=== PATIENT | female | born 1985 | race Caucasian/White ===

== ENCOUNTER 2020-03-25 10:50 | Emergency (ER) | payer MEDICAID ==
--- NOTE | 2020-03-25 10:57 | ER Document Report ---
ED Medical Screen (RME) - General Chief Complaint: Diarrhea Stated Complaint: DIARRHEA Time Seen by Provider: 03/25/20 10:55 Primary Care Provider: TAYO LOPEZ [Primary Care Provider] - Follow up as needed Mode of Arrival: Ambulatory Information source: Patient Notes: 35-year-old female with history of asthma schizophrenia bipolar ADHD and palpitations presents to the emergency department with complaints of diarrhea at least 6 times a day for the past 2 weeks. She reports that started off with sinus pain some sore throat. She now reports dizziness, chills and the diarrhea. Has not taken anything for diarrhea. She lives with a 75-year-old roommate and does not think they are sick. No new medications. Has not been on any kind of antibiotics recently. Reports she is eating and drinking as usual. She reports she is dizzy just sitting there. I have greeted and performed a rapid initial assessment of this patient. A comprehensive ED assessment and evaluation of the patient, analysis of test results and completion of the medical decision making process will be conducted by additional ED providers. - Related Data Allergies/Adverse Reactions: morphine Allergy (Verified 03/25/20 11:00) Hives sulfamethoxazole [From Bactrim] Allergy (Verified 03/25/20 11:00) Hives trimethoprim [From Bactrim] Allergy (Verified 03/25/20 11:00) Hives Past Medical History Pulmonary Medical History: Reports: Hx Bronchitis Psychiatric Medical History: Reports: Hx Bipolar Disorder, Hx Depression Past Surgical History: Reports: Hx Section - x2, Hx Cholecystectomy, Hx Tonsillectomy, Hx Tubal Ligation - Immunizations Hx Diphtheria, Pertussis, Tetanus Vaccination: No Physical Exam - Vital signs Vitals: Temp Pulse Resp BP Pulse Ox 97.9 F 78 16 118/69 99 03/25/20 10:57 03/25/20 10:57 03/25/20 10:57 03/25/20 10:57 03/25/20 10:57 Course - Vital Signs Vital signs: Temp Pulse Resp BP Pulse Ox 97.9 F 78 16 118/69 99 03/25/20 10:57 03/25/20 10:57 03/25/20 10:57 03/25/20 10:57 03/25/20 10:57 Doctor's Discharge - Discharge Referrals: TAYO LOPEZ [Primary Care Provider] - Follow up as needed
[2020-03-25 11:35] LABS: ABSOLUTE BASOPHILS # (AUTO) 0.1 10^3/uL (0.0-0.2); ABSOLUTE EOSINOPHILS # (AUTO) 0.2 10^3/uL (0.0-0.6); ABSOLUTE LYMPHOCYTES (AUTO) 2.5 10^3/uL (0.5-4.7); ABSOLUTE MONOCYTES (AUTO) 0.6 10^3/uL (0.1-1.4); BASOPHILS % (AUTO) 0.9 % (0-2); EOSINOPHILS % (AUTO) 2.7 % (0-6); HEMATOCRIT 45.9 % (36.0-47.0); HEMOGLOBIN 16.3 g/dL (12.0-15.5); LYMPHOCYTES % (AUTO) 39.5 % (13-45); MEAN CORPUSCULAR HEMOGLOBIN 32.5 pg (27.0-33.4); MEAN CORPUSCULAR HGB CONC 35.5 g/dL (32.0-36.0); MEAN CORPUSCULAR VOLUME 92 fl (80-97); MONOCYTES % (AUTO) 8.9 % (3-13); PLATELET COUNT 248 10^3/uL (150-450); RED BLOOD COUNT 5.01 10^6/uL (3.72-5.28); TOTAL CELLS COUNTED % (AUTO) 100 %; WHITE BLOOD COUNT 6.2 10^3/uL (4.0-10.5)
[2020-03-25 11:39] LABS: APPEARANCE,URINE SLIGHTLY-CLOUDY; BILIRUBIN,URINE NEGATIVE (NEGATIVE); COLOR,URINE YELLOW; GLUCOSE, URINE NEGATIVE (NEGATIVE); KETONES,URINE NEGATIVE (NEGATIVE); LEUKOCYTE ESTERASE,URINE NEGATIVE (NEGATIVE); NITRITE,URINE NEGATIVE (NEGATIVE); PROTEIN,URINE NEGATIVE (NEGATIVE); URINE SPECIFIC GRAVITY 1.011; UROBILINOGEN,URINE NEGATIVE mg/dL (<2.0)
[2020-03-25] MEDS ORDERED: KETOROLAC TROMETHAMINE INJ/PF 30 MG/1 ML SDV IV ONE (11:40)
--- NOTE | 2020-03-25 11:44 | ER Document Report ---
ED General - General Chief Complaint: Diarrhea Stated Complaint: DIARRHEA Time Seen by Provider: 03/25/20 10:55 Primary Care Provider: TAYO LOPEZ [NO LOCAL MD] - Follow up as needed Mode of Arrival: Ambulatory - [facility] Notes: Chief complaint: Diarrhea HPI: 35-year-old female with multiple watery stools for over a week. Feels like she is having chills and fever. Denies any blood per rectum. No vomiting. No known exposure to ill individuals. No recent travel. No recent antibiotic therapy. Patient also reports that she has had a history of chronic low back pain secondary to an old injury from several years ago. She says her back is hurting worse than before. No relief with Tylenol. - Related Data Allergies/Adverse Reactions: morphine Allergy (Verified 03/25/20 11:00) Hives sulfamethoxazole [From Bactrim] Allergy (Verified 03/25/20 11:00) Hives trimethoprim [From Bactrim] Allergy (Verified 03/25/20 11:00) Hives Home Medications: paxil, invega, abilify, clonidine, seroquel Past Medical History - General Information source: Patient - Social History Smoking Status: Current Every Day Smoker Chew tobacco use (# tins/day): No Frequency of alcohol use: None Drug Abuse: Marijuana Family History: Reviewed & Not Pertinent Patient has suicidal ideation: No Patient has homicidal ideation: No Pulmonary Medical History: Reports: Hx Bronchitis Psychiatric Medical History: Reports: Hx Bipolar Disorder, Hx Depression Past Surgical History: Reports: Hx Section - x2, Hx Cholecystectomy, Hx Tonsillectomy, Hx Tubal Ligation - Immunizations Hx Diphtheria, Pertussis, Tetanus Vaccination: No Review of Systems - Review of Systems Notes: Constitutional: Subjective fever. HENT: Negative for sore throat. Eyes: Negative for visual changes. Cardiovascular: Negative for chest pain. Respiratory: Negative for shortness of breath. Gastrointestinal: As per HPI. Genitourinary: Negative for dysuria. Musculoskeletal: As per HPI. Skin: Negative for rash. Neurological: Negative for headaches, weakness or numbness. 10 point ROS negative except as marked above and in HPI. Physical Exam - Vital signs Vitals: Temp Pulse Resp BP Pulse Ox 97.9 F 78 16 118/69 99 03/25/20 10:57 03/25/20 10:57 03/25/20 10:57 03/25/20 10:57 03/25/20 10:57 - Notes Notes: GENERAL: Middle-age female who appears dehydrated. SKIN: Turgor slightly diminished. No rashes. HEAD: Normocephalic atraumatic. EYES: Eyes appear mildly sunken. PERRLA. EOMI. Conjunctivae and sclerae clear. EARS: CANALS AND TMS CLEAR. NOSE: CLEAR. MOUTH: Tacky oral mucosa. Good dentition. No stridor or edema. No drooling. NECK: Supple. No masses or thyromegaly. No adenopathy. Carotids 2+ without bruits. No JVD. BACK: Paraspinous tenderness lumbar area with palpable muscle spasm. Straight leg raising test negative. CHEST: Respirations unlabored. Breath sounds clear and symmetrical. HEART: Regular rhythm. No murmur gallop or rub. ABDOMEN: Soft nontender without masses, organomegaly or rebound. Bowel sounds hyperactive. No bruits. GENITALIA: Deferred. EXTREMITIES: No edema. No calf tenderness. Cap refill less than 1.5 seconds. Dorsalis pedis and posterior tibial pulses 3+ and symmetrical. NEUROLOGICAL: GCS 15. Alert and oriented x3. Normal gait. Fluent speech. Cranial nerves II through XII intact. Sensorimotor and cerebellar normal. Normal tone. PSYCHIATRIC: Appropriate affect. Course - Re-evaluation Re-evalutation: 03/25/20 14:11 Patient appeared clinically dehydrated and she was polycythemic on her CBC possibly also consistent with dehydration. She received 2 L normal saline IV here. She is tolerating p.o. fluids without difficulty. She denies any further stools here. Based on the history I would have to have concerned about infectious diarrhea. I think we can reasonably treat her as an outpatient with some oral antibiotics and have her follow-up with primary care physician. - Vital Signs Vital signs: Temp Pulse Resp BP Pulse Ox 97.9 F 78 16 118/69 99 03/25/20 11:01 03/25/20 10:57 03/25/20 10:57 03/25/20 10:57 03/25/20 10:57 - Laboratory Result Diagrams: 03/25/20 11:18 03/25/20 11:18 Laboratory results interpreted by me: 03/25/20 03/25/20 11:18 11:18 Hgb 16.3 H Sodium 134.8 L Discharge - Discharge Clinical Impression: Dehydration Diarrhea Qualifiers: Diarrhea type: unspecified type Qualified Code(s): R19.7 - Diarrhea, unspec ified Chronic low back pain Qualifiers: Back pain laterality: midline Sciatica presence: without sciatica Qualified Code(s): M54.5 - Low back pain; G89.29 - Other chronic pain Condition: Stable Disposition: HOME, SELF-CARE Additional Instructions: Increase oral fluids. Return here as needed for new or worsening symptoms: Pain that is worsening or unimproved Uncontrolled vomiting High fever or shaking chills Overall worsening Prescriptions: Ciprofloxacin HCl [Cipro 500 mg Tablet] 500 mg PO BID #20 tablet Metronidazole [Flagyl 500 mg Tablet] 500 mg PO Q6H #28 tablet Cyclobenzaprine HCl [Flexeril 10 mg Tablet] 10 mg PO TIDP PRN #15 tab PRN Reason: Referrals: LOCAL,NO [NO LOCAL MD] - Follow up as needed [facility] [Provider Group] - Follow up as needed
[2020-03-25 11:53] LABS: ALBUMIN 4.7 g/dL (3.5-5.0); ALKALINE PHOSPHATASE 96 U/L (38-126); ANION GAP 7 (5-19); ASPARTATE AMINO TRANSFERASE 24 U/L (14-36); BILIRUBIN,TOTAL 0.5 mg/dL (0.2-1.3); BLOOD UREA NITROGEN 14 mg/dL (7-20); CARBON DIOXIDE 28 mmol/L (22-30); CHLORIDE 100 mmol/L (98-107); GLUCOSE 101 mg/dL (75-110); POTASSIUM 4.7 mmol/L (3.6-5.0); TOTAL PROTEIN 7.8 g/dL (6.3-8.2)
[2020-03-25] MEDS: NORMAL SALINE 1000 ML 1,000 ML IV PRN ×2 (13:07→13:50)
[2020-03-25 14:37] VITALS: BP 115/62
[2020-03-25 19:55] LABS: C DIFFICILE GDH NEGATIVE (NEGATIVE)
--- NOTE | 2020-03-27 10:30 | EKG REPORT ---
SEVERITY:- NORMAL ECG - SINUS RHYTHM : Confirmed by: Jose Luz 27-Mar-2020 10:29:06
== END 2020-03-25 14:36 | disposition home or self-care (01) ==
LOC: ER 10:50
DX: E86.0 Dehydration (principal); G89.29 Other chronic pain; M54.5 Low back pain; R19.7 Diarrhea, unspecified; R42 Dizziness and giddiness; R68.83 Chills (without fever); Z90.49 Acquired absence of other specified parts of digestive tract; Z98.51 Tubal ligation status; Z88.6 Allergy status to analgesic agent; Z88.3 Allergy status to other anti-infective agents
CPT/HCPCS: 93005; 99284; 96361; 96374; 36415; 87045; 87205; 84703; 85025; 80053; 81001; 87324; 87449; 93010; J1885; J7030